=== PATIENT | male | born 1995 | race Caucasian/White ===

== ENCOUNTER 2018-10-21 18:18 | Emergency (ER) | payer OTHER ==
[~2018-10-21] VITALS: Ht 167.6 cm; Wt 68.0 kg
[2018-10-21 18:24] VITALS: BP 123/74
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
--- NOTE | 2018-10-21 19:13 | NUR ---
Pt report given to KO FARRELL. Transfer of care at this time.
--- NOTE | 2018-10-21 19:15 | NUR ---
ASSUMED CARE OF PT AT THIS TIME, PT LAYING IN BED SLEEPING AROUSABLE TO PHYSICAL STIMULI, PT MUMBLING AND FALLS ASLEEP QUICKLY, VOMIT NOTED IN BED, NO ACTIVE VOMITNG AT THIS TIME, PT LOWER LIP IS BLOODY AND SWOLLEN, LACERATION NOTED TO CHIN AREA.
--- NOTE | 2018-10-21 20:04 | NUR ---
Dr. Shannon evaluating patient at bedside.
[2018-10-21] MEDS ORDERED: NACL 0.9% 1,000 ML IV ONE (20:15)
--- NOTE | 2018-10-21 20:31 | NUR ---
PT MOVED TO BED 8
--- NOTE | 2018-10-21 20:36 | NUR ---
PT TAKEN TO RADIOLOGY
--- NOTE | 2018-10-21 20:45 | NUR ---
PT REFUSING CT AT THIS TIME, JAY SMITH MADE AWARE.
--- NOTE | 2018-10-21 21:00 | NUR ---
PT IN BED ON PHONE, CLEAR SPEECH, PT IS FORGETFUL BUT ACTING APPROPRIATE.
[2018-10-21] MEDS ORDERED: KETOROLAC 30 MG/ML VIAL IVP ONE (22:45)
--- NOTE | 2018-10-21 23:06 | NUR ---
PT RETURN FROM CT
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
[2018-10-22 01:13] VITALS: BP 145/78
--- NOTE | 2018-10-22 01:16 | NUR ---
Patient discharged with v/s stable. Written and verbal after care instructions given and explained. Patient alert, oriented and verbalized understanding of instructions. Ambulatory with steady gait. All questions addressed prior to discharge. ID band removed. Patient advised to follow up with PMD. Rx of TYLENOL given. Patient educated on indication of medication including possible reaction and side effects. Opportunity to ask questions provided and answered. PT AND MOTHER IN ER LOBBY TO SEM MANAGER PT.
== END 2018-10-22 01:16 | disposition home or self-care (01) ==
LOC: MED 18:18
DX: S01.81XA Laceration without foreign body of other part of head, initial encounter (principal); S09.90XA Unspecified injury of head, initial encounter; F10.129 Alcohol abuse with intoxication, unspecified; W18.39XA Other fall on same level, initial encounter; Y93.89 Activity, other specified; Y92.89 Other specified places as the place of occurrence of the external cause; Y99.8 Other external cause status
CPT/HCPCS: 12011; 70450; 70486; 71045; 72125; 81002; 96374; 99284; J1885; J7030; Q0092

== ENCOUNTER 2018-11-27 22:12 | Emergency (ER) | payer OTHER ==
[~2018-11-27] VITALS: Ht 170.2 cm; Wt 81.6 kg
[2018-11-27 22:21] VITALS: BP 146/76
--- NOTE | 2018-11-27 22:25 | NUR ---
BIB [facility] C/O ALCOHOL INTOXICATION, PT IS REFUSING TO BE ASSESSED. PT IS COMBATIVE, REFUSING TO PUT A GOWN ON OR LAY IN BED. PT IS TELLING ER STAFF TO "GET THE FUCK AWAY, OR I WILL FLIP OUT". PT IS STATING THAT HE DOES NOT WANT TO STAY HERE. ATTEMPTED TO GET VITAL SIGNS AND PT IS PUSHING AND ROLLING AWAY FROM STAFF. SECURTY AT BEDSIDE. PT IS OUT OF ROOM ASKING TO GO TO BATHROOM, OFFERED BATHROOM AND HE SAID I WANT TO LEAVE. PT WAS ATTEMPTED TO BE ESCORTED TO BATHROOM, BUT KEPT WALKING OUT THE DOOR TO LOBBY. PT WAS OUT IN LOBBY POINTING AND YELLING AT PATIENTS "YOU DID THIS TO ME, YOU DID THIS TO ME?" FREDO BAILON CALLED. PT LEFT W/O BEING SEEN BY DR. JAY SMITH MADE AWARE OF PT STATUS.
--- NOTE | 2018-11-27 22:25 | NUR ---
PT BECAME VERBALLY AND PHYSICALLY COMBATIVE, RESISTED ATTEMPTS AT TREATMENT
--- NOTE | 2018-11-27 22:45 | NUR ---
PT LWBS AT THIS TIME.
== END 2018-11-27 22:45 | disposition left against medical advice (07) ==
LOC: MED 22:12
DX: F10.129 Alcohol abuse with intoxication, unspecified (principal); Z53.21 Procedure and treatment not carried out due to patient leaving prior to being seen by health care provider

== ENCOUNTER 2022-08-30 01:38 | Emergency (ER) | payer OTHER ==
[~2022-08-30] VITALS: Ht 162.6 cm; Wt 63.5 kg
--- NOTE | 2022-08-30 01:40 | NUR ---
BIBA TO BED #5
[2022-08-30] MEDS ORDERED: ZIPRASIDONE MESYLATE 20 MG/ML VIAL IM ONE ×2 (01:49→01:50)
[2022-08-30] MEDS ORDERED: NACL 0.9% 2,000 ML IV ONE (01:50)
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
--- NOTE | 2022-08-30 01:53 | NUR ---
PT IS YELLING AND INTERFERING WITH MEDICAL INTERVENTIONS. PT ONLY ANSWERS SELECTIVE QUESTIONS.
[2022-08-30 01:55] VITALS: BP 147/88
[2022-08-30] MEDS ORDERED: INSULIN REGULAR, HUMAN 100 UNIT/ML VIAL IVP ONE (01:55)
--- NOTE | 2022-08-30 02:48 | NUR ---
PT RELEASED FROM [facility].
--- NOTE | 2022-08-30 02:48 | NUR ---
PT IS SNORING, EYES ARE CLOSED. EQUAL RISE AND FALL OF CHEST WALL. PT OPENES EYES TO NOXIOUS STIMULIS. NO S/SX OF RESPIRATORY DISTRESS. VSS. ALL NEEDS MET AT THIS TIME. BED LOCKED IN LOWEST POSITION, SIDE RAILS X2 FOR SAFETY.
[2022-08-30 02:49] LABS: CARBON DIOXIDE 18.3 mmol/L (21-32); CREATININE 0.9 mg/dL (0.6-1.3)
[2022-08-30 02:55] LABS: POTASSIUM 5.3 mmol/L (3.5-5.1)
[2022-08-30] MEDS ORDERED: NACL 0.9% 1,000 ML IV ONE (03:20)
--- NOTE | 2022-08-30 04:23 | NUR ---
[place] remains at bedside.
[2022-08-30 04:33] VITALS: BP 103/43
--- NOTE | 2022-08-30 04:33 | NUR ---
PATIENT [facility] POLICE DEPT. PATIENT EXAMINED BY DR. madrigal. PATIENT MEDICALLY CLEARED AND RELEASED IN CUSTODY IN STABLE CONDITION. ORIGINAL PRE-BOOK FORM GIVEN TO OFFICER vinod.
== END 2022-08-30 04:33 ==
LOC: MED 01:38
DX: S40.211A Abrasion of right shoulder, initial encounter (principal); E11.65 Type 2 diabetes mellitus with hyperglycemia; X58.XXXA Exposure to other specified factors, initial encounter; Y93.89 Activity, other specified; Y92.89 Other specified places as the place of occurrence of the external cause; Y99.8 Other external cause status
CPT/HCPCS: 36415; 71045; 80048; 82803; 96361; 96372; 96374; 99285; J1815; J3486; Q0092; J7030

== ENCOUNTER 2023-12-09 19:37 | Emergency (ER) | payer OTHER ==
[~2023-12-09] VITALS: Ht 167.6 cm; Wt 72.6 kg
[2023-12-09 19:53] VITALS: BP 147/86; PULSE 92; RESP 18; TEMP 98.9; O2SAT 98
[2023-12-09] MEDS: NACL 0.9% 1,000 ML IV ONE (20:07)
[2023-12-09 20:33] LABS: CALCIUM 8.8 mg/dL (8.5-10.1); CREATININE 0.9 mg/dL (0.6-1.3)
== END 2023-12-09 21:38 ==
LOC: MED 19:37
DX: E11.65 Type 2 diabetes mellitus with hyperglycemia (principal); Z79.4 Long term (current) use of insulin; Z79.899 Other long term (current) drug therapy
CPT/HCPCS: 36415; 80048; 82040; 96360; 99283; J7030